=== PATIENT | male | born 1990 | race Caucasian/White ===

== ENCOUNTER 2017-02-20 09:19 | Inpatient (IN) | payer BC, OTHER ==
[2017-02-20 15:08] VITALS: BMI 26.4
--- NOTE | 2017-02-20 17:16 | HP ---
COWS - Scale Resting Pulse: 2= [place] 101-120 Sweatin= Chills/Flushing Restless Observation: 1= Difficult to Sit Still Pupil Size: 1= Pupils >than Normal Bone or Joint Aches: 1= Mild Discomfort Runny Nose/ Eye Tearin= Nasal Congestion GI Upset > 30mins: 1= Stomach Cramp Tremor Observation: 1= Tremor [place], Not Seen Yawning Observation: 0= None Anxiety or Irritability: 1=Feels Anxious/Irritable Goose Flesh Skin: 0=Smooth Skin COWS Score: 10 CIWA Score - CIWA Score Nausea/Vomitin Muscle Tremors: 2 Anxiety: 3 Agitation: 2 Paroxysmal Sweats: 3 Orientation: 0-Oriented Tacttile Disturbances: 1-Very Mild Itch/Numbness Auditory Disturbances: 0-None Visual Disturbances: 0-None Headache: 0-None Present CIWA-Ar Total Score: 13 Admission ROS BHS - HPI Chief Complaint: I need help to detox from drugs Allergies/Adverse Reactions: Allergies Allergy/AdvReac Type Severity Reaction Status Date / Time No Known Allergies Allergy Verified 02/20/17 15:15 History of Present Illness: 26 y/o m pt with a h/o polysubstance dependency seeking detox. Exam Limitations: No Limitations - Ebola screening Have you traveled outside of the country in the last 21 days: No Have you had contact with anyone from an Ebola affected area: No Have you been sick,other than usual withdrawal symptoms: No Do you have a fever: No - Review of Systems Constitutional: Loss of Appetite, Malaise, Night Sweats, Changes in sleep EENT: reports: Nose Congestion, Other (congestion left ear) Respiratory: reports: No Symptoms reported Cardiac: reports: No Symptoms Reported GI: reports: No Symptoms Reported : reports: Other (hesitancy) Musculoskeletal: reports: Back Pain, Muscle Pain (legs) Integumentary: reports: No Symptoms Reported Neuro: reports: Seizure Endocrine: reports: No Symptoms Reported Hematology: reports: No Symptoms Reported Psychiatric: reports: Depressed Other Systems: Reviewed and Negative Patient History - Patient Medical History Hx Anemia: No Hx Asthma: Yes (childhood ) Hx Chronic Obstructive Pulmonary Disease (COPD): No Hx Cancer: No Hx Cardiac Disorders: No Hx Congestive Heart Failure: No Hx Hypertension: No Hx Hypercholesterolemia: No Hx Pacemaker: No HX Cerebrovascular Accident: No Hx Seizures: Yes (2016- drug /alcohol related ) Hx Dementia: No Hx Diabetes: No Hx Gastrointestinal Disorders: No Hx Liver Disease: No Hx Genitourinary Disorders: No Hx Sexually Transmitted Disorders: No Hx Renal Disease (ESRD): No Hx Thyroid Disease: No Hx Human Immunodeficiency Virus (HIV): No Hx Hepatitis C: No Hx Depression: Yes Hx Suicide Attempt: No Hx Schizophrenia: No - Patient Surgical History Past Surgical History: Yes Hx Appendectomy: Yes - PPD History Previous Implant?: Yes Documented Results: Negative w/o proof Implanted On Prior [facility] Admission?: No PPD to be Administered?: Yes - Reproductive History Patient is a Female of Child Bearing Age (11 -55 yrs old): No - Smoking Cessation Smoking history: Current every day smoker Have you smoked in the past 12 months: Yes Aproximately how many cigarettes per day: 19 Cigars Per Day: 0 Hx Chewing Tobacco Use: No Initiated information on smoking cessation: Yes 'Breaking Loose' booklet given: 02/20/17 - Substance & Tx. History Hx Alcohol Use: Yes Hx Substance Use: Yes Substance Use Type: Alcohol, Heroin, Opiates, Tranquilizers Hx Substance Use Treatment: No - Substances Abused Alprazolam (Xanax) Route: Oral Frequency: Daily Amount used: 10MG Age of first use: 18 Date of Last Use: 02/20/17 Alcohol Route: Oral Frequency: Daily Amount used: BEER-6-12 bottles-12 OZ Age of first use: 13 Date of Last Use: 02/20/17 Marijuana/Hashish Route: Smoking Frequency: Daily Amount used: 3 1/2 GRAMS Age of first use: 13 Date of Last Use: 02/20/17 Heroin Route: Inhalation Frequency: Daily Amount used: 10-20 BAGS Age of first use: 26 Date of Last Use: 02/20/17 OXYCODONE Route: Inhalation Frequency: Daily Amount used: 300MG Age of first use: 21 Date of Last Use: 02/15/17 Family Disease History - Family Disease History Family Disease History: Respiratory: Mother (asthma ) Admission Physical Exam BHS - Vital Signs Vital Signs: Vital Signs - 24 hr 02/20/17 15:04 Temperature 97.0 F L Pulse Rate 113 H Respiratory 20 Rate Blood Pressure 131/73 26 y/o m pt slight drowsy but ox3 , cooperative with exam - Physical General Appearance: Yes: Appropriately Dressed, Intoxicated, Irritable, Sweating , Anxious HEENTM: Yes: EOMI, Hearing grossly Normal, Normal ENT Inspection, ELIAN, Nasal Congestion Respiratory: Yes: Chest Non-Tender, Lungs Clear, Normal Breath Sounds, No Respiratory Distress Neck: Yes: Supple, Trachea in good position Breast: Yes: Within Normal Limits Cardiology: Yes: Regular Rhythm, Tachycardia Abdominal: Yes: Non Tender, Flat, Soft, Increased Bowel Sounds Genitourinary: Yes: Hesitency, Dribblimg Back: Yes: Decreased Range of Motion Musculoskeletal: Yes: Muscle Pain (legs) Extremities: Yes: Within Normal Limits Neurological: Yes: 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 bought therefore will hold methadone detox till am. (2) Nicotine dependence Current Visit: Yes Status: Chronic Qualifiers: Nicotine product type: cigarettes Substance use status: uncomplicated Qualified Code(s): F17.210 - Nicotine dependence, cigarettes, uncomplicated (3) Xanax use disorder, moderate Current Visit: Yes Status: Chronic (4) Chronic alcoholism Current Visit: Yes Status: Chronic Cleared for Admission [facility] - Detox or Rehab [facility] Level of Care: Medically Managed Detox Regimen/Protocol: Methadone/Valium S Breath Alcohol Content Breath Alcohol Content: 0 Urine Drug Screen - Results Drug Screen Negative: No Urine Drug Screen Results: THC-Marijuana, OPI-Opiates, BZO-Benzodiazepines
[2017-02-20] MEDS ORDERED: MAGNESIUM HYDROX 2400MG/30ML ORAL SUSPENSION 30 ML CUP PO PRN (17:41)
[2017-02-20] MEDS ORDERED: diazePAM 5 MG TABLET PO PRN (17:41)
[2017-02-20] MEDS ORDERED: LOPERAMIDE HCL 2 MG CAPSULE PO PRN (17:41)
[2017-02-20] MEDS ORDERED: MAGNESIUM CITRATE 300 ML BOTTLE PO PRN (17:41)
[2017-02-20] MEDS ORDERED: MAG HYDROX/AL HYDROX/SIMETH 30 ML UNIT-DOSE CUP PO PRN (17:41)
[2017-02-20] MEDS ORDERED: IBUPROFEN 400 MG TABLET (FP) PO PRN (17:41)
[2017-02-20] MEDS ORDERED: guaiFENesin/D-METHORPHAN HB 10 ML UNIT-DOSE CUPS PO PRN (17:41)
[2017-02-20] MEDS ORDERED: MENTHOL/PHENOL 1 EACH UD MM PRN (17:41)
[2017-02-20] MEDS ORDERED: ACETAMINOPHEN 325 MG TABLET (FP) PO PRN (17:41)
[2017-02-20] MEDS ORDERED: P-EPHED 60MG/TRIPROLIDI 2.5MG TABLET PO PRN (17:41)
[2017-02-20] MEDS ORDERED: diazePAM 5 MG TABLET PO ONE (18:15)
[2017-02-20] MEDS: NICOTINE POLACRILEX 4 MG GUM BC PRN (20:10)
[2017-02-20] MEDS: THIAMINE HCL 100 MG TABLET (FP) PO SCH (22:27)
[2017-02-20] MEDS: diazePAM 5 MG TABLET PO SCH (22:27)
[2017-02-20] MEDS: diphenhydrAMINE HCL 50 MG CAPSULE PO PRN (22:27)
[2017-02-21] MEDS: diazePAM 5 MG TABLET PO SCH ×3 (05:43→22:33)
--- NOTE | 2017-02-21 08:57 | CONSULT ---
[facility] Psychiatric Consult - Data Date of interview: 02/21/17 Admission source: [facility] Identifying data: This is 26 years old male with no psychiatric hospitalization history intoxicated with: Alcohol, Opioids, Cannabis, Xanax and Nicotine Substance Abuse History: - Smoking Cessation. Smoking history: Current every day smoker. Have you smoked in the past 12 months: Yes. Aproximately how many cigarettes per day: 19. Cigars Per Day: 0. Hx Chewing Tobacco Use: No. Initiated information on smoking cessation: Yes. 'Breaking Loose' booklet given : 02/20/17. - Substance & Tx. History. Hx Alcohol Use: Yes. Hx Substance Use : Yes. Substance Use Type: Alcohol, Heroin, Opiates, Tranquilizers. Hx Substance Use Treatment: No. - Substances Abused. Alprazolam (Xanax). Route: Oral. Frequency: Daily. Amount used: 10MG. Age of first use: 18. Date of Last Use: 02/20/17. Alcohol. Route: Oral. Frequency: Daily. Amount used: BEER-6-12 bottles-12 OZ. Age of first use: 13. Date of Last Use: 02/20/17. Marijuana/Hashish. Route: Smoking. Frequency: Daily. Amount used: 3 1/2 GRAMS. Age of first use: 13. Date of Last Use: 02/20/17. Heroin. Route: Inhalation. Frequency: Daily. Amount used: 10-20 BAGS. Age of first use: 26. Date of Last Use: 02/20/17. OXYCODONE. Route: Inhalation. Frequency: Daily. Amount used: 300MG. Age of first use: 21. Date of Last Use: Medical History: Denies significanyt medical issues Psychiatric History: Denies poast psychiatric history, reports no medications taking prior to admission Physical/Sexual Abuse/Trauma History: Denies Additional Comment: Observation. Detox Unit Care Protocol Mental Status Exam - Mental Status Exam Alert and Oriented to: Person Cognitive Function: Fair Patient Appearance: Unkempt Mood: Sad Affect: Flat Patient Behavior: Sedated Speech Pattern: Delayed Voice Loudness: Mildly Soft/Quiet Thought Process: Circumstantial Thought Disorder: Being Controlled Hallucinations: Denies Suicidal Ideation: Denies Homicidal Ideation: Denies Insight/Judgement: Fair Sleep: Difficulty falling asleep Appetite: Weight loss Muscle strength/Tone: Mild Hypotonicity Gait/Station: Shuffling Additional Comments: Observation. Detox Unit Care Protocol Psychiatric Findings - Problem List ([place] 1, 2,3) (1) Chronic alcoholism Current Visit: Yes Status: Chronic (2) Nicotine dependence Current Visit: Yes Status: Chronic Qualifiers: Nicotine product type: cigarettes Substance use status: uncomplicated Qualified Code(s): F17.210 - Nicotine dependence, cigarettes, uncomplicated (3) Opioid dependence Current Visit: Yes Status: Chronic Qualifiers: Substance use status: uncomplicated Qualified Code(s): F11.20 - Opioid dependence, uncomplicated Comment: pt took suboxone 8mg on 02/19/17, -st. bought therefore will hold methadone detox till am. (4) Xanax use disorder, moderate Current Visit: Yes Status: Chronic (5) Alcohol use with intoxication Current Visit: No Status: Acute (6) Drug-induced mood disorder Current Visit: Yes Status: Acute - Initial Treatment Plan Initial Treatment Plan: Observation. Detox Unit Care Protocol
[2017-02-21 09:58] LABS: MCHC 33.8 g/dl (32.0-35.9); MEAN CELL VOLUME 91.8 fl (80-96); MEAN PLT VOLUME 8.5 fl (7.5-11.1); PLATELET COUNT 208 K/MM3 (134-434); WHITE BLOOD COUNT 4.5 K/mm3 (4.0-10.0)
[2017-02-21] MEDS ORDERED: METHADONE HCL 10 MG TABLET (FOR DETOX USE ONLY) PO ONE (10:00)
[2017-02-21] MEDS: NICOTINE 21 MG/24 HOURS TOPICAL PATCH TD SCH (10:25)
[2017-02-21] MEDS: PRENATAL VITAMINS W/ FOLIC ACID TABLET (FP) PO SCH (10:25)
[2017-02-21] MEDS: diazePAM 5 MG TABLET PO PRN ×2 (10:28→18:05)
[2017-02-21 10:30] LABS: ALBUMIN 3.5 g/dl (3.4-5.0); ALK PHOS 51 U/L (45-117); ANION GAP 6 (8-16); BILIRUBIN,TOTAL 0.2 mg/dL (0.2-1.0); CALCIUM 8.7 mg/dL (8.5-10.1); CO2 29 mmol/L (21-32); CREATININE 0.8 mg/dL (0.7-1.3); GLUCOSE,RANDOM 117 mg/dL (74-106); SGOT/AST 16 U/L (15-37); SGPT/ALT 18 U/L (12-78); TOT PROT 5.8 g/dl (6.4-8.2)
[2017-02-21 10:39] LABS: HIV 1 & 2 AB NEGATIVE; HIV 1 AGp24 NEGATIVE
--- NOTE | 2017-02-21 11:14 | PN ---
[facility] CIWA - CIWA Score Nausea/Vomitin-No Nausea/No Vomiting Muscle Tremors: 4-Moderate,w/Arms Extend Anxiety: 4-Mod. Anxious/Guarded Agitation: 4-Moderately Restless Paroxysmal Sweats: 1-Minimal Palms Moist Orientation: 0-Oriented Tacttile Disturbances: 0-None Auditory Disturbances: 0-None Visual Disturbances: 0-None Headache: 0-None Present CIWA-Ar Total Score: 13 BHS COWS - Scale Resting Pulse: 0= [place] 80 or Below Sweatin= Chills/Flushing Restless Observation: 3= Extraneous Movement Pupil Size: 2= Moderately Dilated Bone or Joint Aches: 4=Acute Joint/Muscle Pain Runny Nose/ Eye Tearin= Nasal Congestion GI Upset > 30mins: 1= Stomach Cramp Tremor Observation of Outstretched Hands: 2= Slight Tremor Visible Yawning Observation: 2= >3x During Session Anxiety or Irritability: 2=Irritable/Anxious Goose Flesh Skin: 0=Smooth Skin COWS Score: 18 S Progress Note (SOAP) Subjective: ANXIETY,SWEATS,IRRITABILITY,RESTLESSNESS,INTERMITTENT SLEEP, FATIGUE.REQUESTING SLEEPING AID. Objective: 02/21/17 11:13 Vital Signs Temperature 96.9 F L 02/21/17 09:55 Pulse Rate 70 02/21/17 09:55 Respiratory Rate 18 02/21/17 09:55 Blood Pressure 105/69 02/21/17 09:55 O2 Sat by Pulse Oximetry (%) Laboratory Last Values WBC 4.5 K/mm3 (4.0-10.0) D 02/21/17 06:30 RBC 4.28 M/mm3 (4.00-5.60) 02/21/17 06:30 Hgb 13.3 GM/dL (11.7-16.9) 02/21/17 06:30 Hct 39.3 % (35.4-49) 02/21/17 06:30 MCV 91.8 fl (80-96) 02/21/17 06:30 MCH 31.0 pg (25.7-33.7) 02/21/17 06:30 MCHC 33.8 g/dl (32.0-35.9) 02/21/17 06:30 RDW 13.0 % (11.9-15.9) 02/21/17 06:30 Plt Count 208 K/MM3 (134-434) 02/21/17 06:30 MPV 8.5 fl (7.5-11.1) 02/21/17 06:30 Sodium 140 mmol/L (136-145) 02/21/17 06:30 Potassium 4.1 mmol/L (3.5-5.1) 02/21/17 06:30 Chloride 105 mmol/L (98-107) 02/21/17 06:30 Carbon Dioxide 29 mmol/L (21-32) 02/21/17 06:30 Anion Gap 6 (8-16) L 02/21/17 06:30 BUN 13 mg/dL (7-18) D 02/21/17 06:30 Creatinine 0.8 mg/dL (0.7-1.3) 02/21/17 06:30 Creat Clearance w eGFR > 60 (>60) 02/21/17 06:30 Random Glucose 117 mg/dL (74-106) H D 02/21/17 06:30 Calcium 8.7 mg/dL (8.5-10.1) 02/21/17 06:30 Total Bilirubin 0.2 mg/dL (0.2-1.0) 02/21/17 06:30 AST 16 U/L (15-37) 02/21/17 06:30 ALT 18 U/L (12-78) D 02/21/17 06:30 Alkaline Phosphatase 51 U/L (45-117) D 02/21/17 06:30 Total Protein 5.8 g/dl (6.4-8.2) L 02/21/17 06:30 Albumin 3.5 g/dl (3.4-5.0) 02/21/17 06:30 RPR Titer Nonreactive (NONREACTIVE) 02/21/17 06:30 HIV 1&2 Antibody Screen Negative 02/21/17 06:30 HIV P24 Antigen Negative 02/21/17 06:30 Assessment: 02/21/17 11:14 WITHDRAWAL SX Plan: CONTINUE DETOX
[2017-02-21 14:19] LABS: URINE APPEARANCE CLEAR; URINE BILIRUBIN NEGATIVE (NEGATIVE); URINE BLOOD NEGATIVE (NEGATIVE); URINE COLOR LTYELLOW; URINE GLUCOSE (UA) NEGATIVE (NEGATIVE); URINE KETONE NEGATIVE (NEGATIVE); URINE LEUK ESTERASE NEGATIVE (NEGATIVE); URINE NITRITE NEGATIVE (NEGATIVE); URINE PROTEIN NEGATIVE (NEGATIVE); URINE UROBILINOGEN NEGATIVE mg/dL (0.2-1.0)
--- NOTE | 2017-02-21 16:37 | EKG ---
Test Reason : Blood Pressure : / mmHG Vent. Rate : 083 BPM Atrial Rate : 083 BPM P-R Int : 164 ms QRS Dur : 094 ms QT Int : 358 ms P-R-T Axes : 056 060 037 degrees QTc Int : 420 ms NORMAL SINUS RHYTHM NORMAL ECG NO PREVIOUS ECGS AVAILABLE Confirmed by ESTELA GONCALVES MD ([id number]) on 02/21/2017 4:36:53 PM Referred By: Confirmed By:ESTELA GONCALVES MD
[2017-02-21] MEDS ORDERED: cloNIDine HCL 0.1 MG TABLET PO PRN (16:49)
[2017-02-21] MEDS: NICOTINE POLACRILEX 4 MG GUM BC PRN (20:10)
[2017-02-21] MEDS: THIAMINE HCL 100 MG TABLET (FP) PO SCH (22:32)
[2017-02-21] MEDS: CYCLOBENZAPRINE HCL 10 MG TABLET (FP) PO SCH (22:32)
[2017-02-21] MEDS: hydrOXYzine PAMOATE 25 MG CAPSULE (FP) PO PRN (22:36)
[2017-02-22] MEDS: CYCLOBENZAPRINE HCL 10 MG TABLET (FP) PO SCH ×3 (06:18→22:34)
[2017-02-22] MEDS ORDERED: METHADONE HCL 5 MG TABLET (FOR DETOX USE ONLY) PO ONE (10:00)
--- NOTE | 2017-02-22 10:33 | PN ---
[facility] Progress Note Note: Psychiatry Attending's note : Complaint :insomnia. Patient is requesting ambien. Made aware of risk of parasomnias. Ambien 10 mg po hs.Ordered.
[2017-02-22] MEDS: PRENATAL VITAMINS W/ FOLIC ACID TABLET (FP) PO SCH (10:47)
[2017-02-22] MEDS: diazePAM 5 MG TABLET PO SCH ×2 (10:47→22:34)
[2017-02-22] MEDS: NICOTINE 21 MG/24 HOURS TOPICAL PATCH TD SCH (10:48)
--- NOTE | 2017-02-22 12:15 | PN ---
S CIWA - CIWA Score Nausea/Vomitin-No Nausea/No Vomiting Muscle Tremors: 4-Moderate,w/Arms Extend Anxiety: 4-Mod. Anxious/Guarded Agitation: 4-Moderately Restless Paroxysmal Sweats: 1-Minimal Palms Moist Orientation: 0-Oriented Tacttile Disturbances: 3-Moderate Itch/Numb/Burn Auditory Disturbances: 0-None Visual Disturbances: 0-None Headache: 0-None Present CIWA-Ar Total Score: 16 S COWS - Scale Resting Pulse: 0= [place] 80 or Below Sweatin= Chills/Flushing Restless Observation: 3= Extraneous Movement Pupil Size: 2= Moderately Dilated Bone or Joint Aches: 4=Acute Joint/Muscle Pain Runny Nose/ Eye Tearin= None GI Upset > 30mins: 1= Stomach Cramp Tremor Observation of Outstretched Hands: 2= Slight Tremor Visible Yawning Observation: 2= >3x During Session Anxiety or Irritability: 2=Irritable/Anxious Goose Flesh Skin: 0=Smooth Skin COWS Score: 17 [facility] Progress Note (SOAP) Subjective: ANXIETY,IRRITABILITY,SWEATS,INTERMITTENT SLEEP. Objective: 02/22/17 12:14 Vital Signs Temperature 96.8 F L 02/22/17 09:21 Pulse Rate 78 02/22/17 09:21 Respiratory Rate 18 02/22/17 09:21 Blood Pressure 114/71 02/22/17 09:21 O2 Sat by Pulse Oximetry (%) Laboratory Last Values WBC 4.5 K/mm3 (4.0-10.0) D 02/21/17 06:30 RBC 4.28 M/mm3 (4.00-5.60) 02/21/17 06:30 Hgb 13.3 GM/dL (11.7-16.9) 02/21/17 06:30 Hct 39.3 % (35.4-49) 02/21/17 06:30 MCV 91.8 fl (80-96) 02/21/17 06:30 MCH 31.0 pg (25.7-33.7) 02/21/17 06:30 MCHC 33.8 g/dl (32.0-35.9) 02/21/17 06:30 RDW 13.0 % (11.9-15.9) 02/21/17 06:30 Plt Count 208 K/MM3 (134-434) 02/21/17 06:30 MPV 8.5 fl (7.5-11.1) 02/21/17 06:30 Sodium 140 mmol/L (136-145) 02/21/17 06:30 Potassium 4.1 mmol/L (3.5-5.1) 02/21/17 06:30 Chloride 105 mmol/L (98-107) 02/21/17 06:30 Carbon Dioxide 29 mmol/L (21-32) 02/21/17 06:30 Anion Gap 6 (8-16) L 02/21/17 06:30 BUN 13 mg/dL (7-18) D 02/21/17 06:30 Creatinine 0.8 mg/dL (0.7-1.3) 02/21/17 06:30 Creat Clearance w eGFR > 60 (>60) 02/21/17 06:30 Random Glucose 117 mg/dL (74-106) H D 02/21/17 06:30 Calcium 8.7 mg/dL (8.5-10.1) 02/21/17 06:30 Total Bilirubin 0.2 mg/dL (0.2-1.0) 02/21/17 06:30 AST 16 U/L (15-37) 02/21/17 06:30 ALT 18 U/L (12-78) D 02/21/17 06:30 Alkaline Phosphatase 51 U/L (45-117) D 02/21/17 06:30 Total Protein 5.8 g/dl (6.4-8.2) L 02/21/17 06:30 Albumin 3.5 g/dl (3.4-5.0) 02/21/17 06:30 Urine Color Ltyellow 02/21/17 12:30 Urine Appearance Clear 02/21/17 12:30 Urine pH 6.0 (5.0-8.0) 02/21/17 12:30 Ur Specific [place] 1.015 (1.005-1.025) 02/21/17 12:30 Urine Protein Negative (NEGATIVE) 02/21/17 12:30 Urine Glucose (UA) Negative (NEGATIVE) 02/21/17 12:30 Urine Ketones Negative (NEGATIVE) 02/21/17 12:30 Urine Blood Negative (NEGATIVE) 02/21/17 12:30 Urine Nitrite Negative (NEGATIVE) 02/21/17 12:30 Urine Bilirubin Negative (NEGATIVE) 02/21/17 12:30 Urine Urobilinogen Negative mg/dL (0.2-1.0) 02/21/17 12:30 Ur Leukocyte Esterase Negative (NEGATIVE) 02/21/17 12:30 RPR Titer Nonreactive (NONREACTIVE) 02/21/17 06:30 HIV 1&2 Antibody Screen Negative 02/21/17 06:30 HIV P24 Antigen Negative 02/21/17 06:30 Assessment: 02/22/17 12:14 WITHDRAWAL SX Plan: CONTINUE DETOX PSYCH RE:EVALUATION TODAY FOR INSOMNIA
[2017-02-22] MEDS: NICOTINE POLACRILEX 4 MG GUM BC PRN ×2 (13:15→15:32)
[2017-02-22] MEDS: diazePAM 5 MG TABLET PO PRN ×2 (13:16→19:02)
[2017-02-22] MEDS: hydrOXYzine PAMOATE 25 MG CAPSULE (FP) PO PRN (15:32)
[2017-02-22] MEDS: ZOLPIDEM TARTRATE 10 MG TABLET (PARK CARE ONLY) PO PRN (22:34)
[2017-02-22] MEDS: THIAMINE HCL 100 MG TABLET (FP) PO SCH (22:34)
[2017-02-23] MEDS: diazePAM 5 MG TABLET PO PRN ×2 (05:38→12:56)
[2017-02-23] MEDS: CYCLOBENZAPRINE HCL 10 MG TABLET (FP) PO SCH ×3 (05:38→22:53)
[2017-02-23] MEDS ORDERED: METHADONE HCL 5 MG TABLET (FOR DETOX USE ONLY) PO ONE (10:00)
[2017-02-23] MEDS: NICOTINE 21 MG/24 HOURS TOPICAL PATCH TD SCH (10:23)
[2017-02-23] MEDS: PRENATAL VITAMINS W/ FOLIC ACID TABLET (FP) PO SCH (10:23)
[2017-02-23] MEDS: diazePAM 5 MG TABLET PO SCH ×2 (10:23→22:53)
[2017-02-23] MEDS: hydrOXYzine PAMOATE 25 MG CAPSULE (FP) PO PRN (18:08)
--- NOTE | 2017-02-23 20:29 | PN ---
[facility] Progress Note (SOAP) Subjective: Stomach Cramping, Sweating, Constipation, Interrupted sleep, Tremors. Objective: PT. A & O X 3, OBSERVED AMBULATING ON UNIT. NO ACUTE DISTRESS. 02/23/17 20:28 Vital Signs Temperature 97.7 F 02/23/17 18:35 Pulse Rate 80 02/23/17 18:35 Respiratory Rate 18 02/23/17 18:35 Blood Pressure 108/63 02/23/17 18:35 O2 Sat by Pulse Oximetry (%) Laboratory Tests 02/21/17 02/21/17 02/21/17 06:30 06:30 06:30 WBC 4.5 D RBC 4.28 Hgb 13.3 Hct 39.3 MCV 91.8 MCH 31.0 MCHC 33.8 RDW 13.0 Plt Count 208 MPV 8.5 Sodium 140 Potassium 4.1 Chloride 105 Carbon Dioxide 29 Anion Gap 6 L BUN 13 D Creatinine 0.8 Creat Clearance w eGFR > 60 Random Glucose 117 H D Calcium 8.7 Total Bilirubin 0.2 AST 16 ALT 18 D Alkaline Phosphatase 51 D Total Protein 5.8 L Albumin 3.5 Urine Color Urine Appearance Urine pH Ur Specific [place] Urine Protein Urine Glucose (UA) Urine Ketones Urine Blood Urine Nitrite Urine Bilirubin Urine Urobilinogen Ur Leukocyte Esterase RPR Titer HIV 1&2 Antibody Screen Negative HIV P24 Antigen Negative 02/21/17 02/21/17 06:30 12:30 WBC RBC Hgb Hct MCV MCH MCHC RDW Plt Count MPV Sodium Potassium Chloride Carbon Dioxide Anion Gap BUN Creatinine Creat Clearance w eGFR Random Glucose Calcium Total Bilirubin AST ALT Alkaline Phosphatase Total Protein Albumin Urine Color Ltyellow Urine Appearance Clear Urine pH 6.0 Ur Specific [place] 1.015 Urine Protein Negative Urine Glucose (UA) Negative Urine Ketones Negative Urine Blood Negative Urine Nitrite Negative Urine Bilirubin Negative Urine Urobilinogen Negative Ur Leukocyte Esterase Negative RPR Titer Nonreactive HIV 1&2 Antibody Screen HIV P24 Antigen LABS NOTED. Assessment: 02/23/17 20:28 WITHDRAWAL SYMPTOMS. Plan: CONTINUE DETOX.
[2017-02-23] MEDS: ZOLPIDEM TARTRATE 10 MG TABLET (PARK CARE ONLY) PO PRN (22:53)
[2017-02-23] MEDS: THIAMINE HCL 100 MG TABLET (FP) PO SCH (22:54)
[2017-02-24] MEDS: CYCLOBENZAPRINE HCL 10 MG TABLET (FP) PO SCH ×3 (05:10→22:27)
[2017-02-24] MEDS: hydrOXYzine PAMOATE 25 MG CAPSULE (FP) PO PRN ×3 (05:10→17:20)
[2017-02-24] MEDS ORDERED: METHADONE HCL 10 MG TABLET (FOR DETOX USE ONLY) PO ONE (10:00)
[2017-02-24] MEDS ORDERED: diazePAM 5 MG TABLET PO SCH (10:00)
[2017-02-24] MEDS: NICOTINE 21 MG/24 HOURS TOPICAL PATCH TD SCH (10:32)
[2017-02-24] MEDS: PRENATAL VITAMINS W/ FOLIC ACID TABLET (FP) PO SCH (10:32)
--- NOTE | 2017-02-24 16:31 | PN ---
[facility] Progress Note (SOAP) Subjective: Sweating, anxious, restless, interrupted sleep Objective: 02/24/17 16:29 Last Vital Signs Temp Pulse Resp BP Pulse Ox 96.7 F L 93 H 20 114/70 02/24/17 14:40 02/24/17 14:40 02/24/17 14:40 02/24/17 14:40 Laboratory Tests 02/21/17 02/21/17 02/21/17 06:30 06:30 06:30 WBC 4.5 D RBC 4.28 Hgb 13.3 Hct 39.3 MCV 91.8 MCH 31.0 MCHC 33.8 RDW 13.0 Plt Count 208 MPV 8.5 Sodium 140 Potassium 4.1 Chloride 105 Carbon Dioxide 29 Anion Gap 6 L BUN 13 D Creatinine 0.8 Creat Clearance w eGFR > 60 Random Glucose 117 H D Calcium 8.7 Total Bilirubin 0.2 AST 16 ALT 18 D Alkaline Phosphatase 51 D Total Protein 5.8 L Albumin 3.5 Urine Color Urine Appearance Urine pH Ur Specific [place] Urine Protein Urine Glucose (UA) Urine Ketones Urine Blood Urine Nitrite Urine Bilirubin Urine Urobilinogen Ur Leukocyte Esterase RPR Titer HIV 1&2 Antibody Screen Negative HIV P24 Antigen Negative 02/21/17 02/21/17 06:30 12:30 WBC RBC Hgb Hct MCV MCH MCHC RDW Plt Count MPV Sodium Potassium Chloride Carbon Dioxide Anion Gap BUN Creatinine Creat Clearance w eGFR Random Glucose Calcium Total Bilirubin AST ALT Alkaline Phosphatase Total Protein Albumin Urine Color Ltyellow Urine Appearance Clear Urine pH 6.0 Ur Specific [place] 1.015 Urine Protein Negative Urine Glucose (UA) Negative Urine Ketones Negative Urine Blood Negative Urine Nitrite Negative Urine Bilirubin Negative Urine Urobilinogen Negative Ur Leukocyte Esterase Negative RPR Titer Nonreactive HIV 1&2 Antibody Screen HIV P24 Antigen Labs noted Assessment: 02/24/17 16:30 Withdrawal symptoms Plan: Continue detox Encouraged to drink lots of water for hydration
[2017-02-24] MEDS: THIAMINE HCL 100 MG TABLET (FP) PO SCH (22:27)
[2017-02-24] MEDS: ZOLPIDEM TARTRATE 10 MG TABLET (PARK CARE ONLY) PO PRN (22:28)
[2017-02-24] MEDS: diphenhydrAMINE HCL 50 MG CAPSULE PO PRN (23:35)
[2017-02-25] MEDS: CYCLOBENZAPRINE HCL 10 MG TABLET (FP) PO SCH (05:24)
[2017-02-25] MEDS ORDERED: METHADONE HCL 5 MG TABLET (FOR DETOX USE ONLY) PO ONE (06:00)
[2017-02-25 07:00] VITALS: BP 104/62; PULSE 96; TEMP 96.1
--- NOTE | 2017-02-25 13:02 | DS ---
[facility] Detox Discharge Summary Admission Date: 02/20/17 Discharge Date: 02/25/17 - History Present History: Alcohol Dependence, Opioid Dependence, Sedative Dependence Pertinent Past History: HSV - Physical Exam Results Vital Signs: Vital Signs Temperature 96.1 F L 02/25/17 06:59 Pulse Rate 96 H 02/25/17 06:59 Respiratory Rate 16 02/25/17 06:59 Blood Pressure 104/62 02/25/17 06:59 O2 Sat by Pulse Oximetry (%) Pertinent Admission Physical Exam Findings: Withdrawal sx. Laboratory Last Values WBC 4.5 K/mm3 (4.0-10.0) D 02/21/17 06:30 RBC 4.28 M/mm3 (4.00-5.60) 02/21/17 06:30 Hgb 13.3 GM/dL (11.7-16.9) 02/21/17 06:30 Hct 39.3 % (35.4-49) 02/21/17 06:30 MCV 91.8 fl (80-96) 02/21/17 06:30 MCH 31.0 pg (25.7-33.7) 02/21/17 06:30 MCHC 33.8 g/dl (32.0-35.9) 02/21/17 06:30 RDW 13.0 % (11.9-15.9) 02/21/17 06:30 Plt Count 208 K/MM3 (134-434) 02/21/17 06:30 MPV 8.5 fl (7.5-11.1) 02/21/17 06:30 Sodium 140 mmol/L (136-145) 02/21/17 06:30 Potassium 4.1 mmol/L (3.5-5.1) 02/21/17 06:30 Chloride 105 mmol/L (98-107) 02/21/17 06:30 Carbon Dioxide 29 mmol/L (21-32) 02/21/17 06:30 Anion Gap 6 (8-16) L 02/21/17 06:30 BUN 13 mg/dL (7-18) D 02/21/17 06:30 Creatinine 0.8 mg/dL (0.7-1.3) 02/21/17 06:30 Creat Clearance w eGFR > 60 (>60) 02/21/17 06:30 Random Glucose 117 mg/dL (74-106) H D 02/21/17 06:30 Calcium 8.7 mg/dL (8.5-10.1) 02/21/17 06:30 Total Bilirubin 0.2 mg/dL (0.2-1.0) 02/21/17 06:30 AST 16 U/L (15-37) 02/21/17 06:30 ALT 18 U/L (12-78) D 02/21/17 06:30 Alkaline Phosphatase 51 U/L (45-117) D 02/21/17 06:30 Total Protein 5.8 g/dl (6.4-8.2) L 02/21/17 06:30 Albumin 3.5 g/dl (3.4-5.0) 02/21/17 06:30 Urine Color Ltyellow 02/21/17 12:30 Urine Appearance Clear 02/21/17 12:30 Urine pH 6.0 (5.0-8.0) 02/21/17 12:30 Ur Specific [place] 1.015 (1.005-1.025) 02/21/17 12:30 Urine Protein Negative (NEGATIVE) 02/21/17 12:30 Urine Glucose (UA) Negative (NEGATIVE) 02/21/17 12:30 Urine Ketones Negative (NEGATIVE) 02/21/17 12:30 Urine Blood Negative (NEGATIVE) 02/21/17 12:30 Urine Nitrite Negative (NEGATIVE) 02/21/17 12:30 Urine Bilirubin Negative (NEGATIVE) 02/21/17 12:30 Urine Urobilinogen Negative mg/dL (0.2-1.0) 02/21/17 12:30 Ur Leukocyte Esterase Negative (NEGATIVE) 02/21/17 12:30 RPR Titer Nonreactive (NONREACTIVE) 02/21/17 06:30 HIV 1&2 Antibody Screen Negative 02/21/17 06:30 HIV P24 Antigen Negative 02/21/17 06:30 labs noted - Treatment Hospital Course: Detox Protocol Followed, Detoxed Safely, Responded well, Discharged Condition Good, Rehab Referral Accepted Patient has Accepted a Rehab Referral to: Pt. was approved for Bx. ATC but refused, He will arrange an alternative Tx - Medication Discharge Medications: Ambulatory Orders Alprazolam [Xanax -] 2 mg PO BID 12/15/14 Fluconazole 200 mg PO DAILY PRN 02/20/17 Valacyclovir HCl [Valtrex -] 2,000 mg PO BID PRN 02/20/17 - Diagnosis (1) Drug-induced mood disorder Status: Acute (2) Nicotine dependence Status: Chronic Qualifiers: Nicotine product type: cigarettes Substance use status: uncomplicated Qualified Code(s): F17.210 - Nicotine dependence, cigarettes, uncomplicated (3) Alcohol dependence with uncomplicated withdrawal Status: Acute (4) Opioid dependence with withdrawal Status: Acute (5) Sedative, hypnotic or anxiolytic dependence with withdrawal, uncomplicated Status: Acute - AMA Did Patient Leave Against Medical Advice: No
== END 2017-02-25 08:58 | disposition home or self-care (01) | DRG 897 ==
LOC: YASAS 09:19 → Y3N 16:53
PROVIDERS: ADMIT Internal Medicine Addiction Medicine; ATTEND Internal Medicine Addiction Medicine
PROC: HZ2ZZZZ Detoxification Services for Substance Abuse Treatment (ICD-10-PCS; principal; 2017-02-20)
DX: F11.23 Opioid dependence with withdrawal (principal); F10.230 Alcohol dependence with withdrawal, uncomplicated; F13.230 Sedative, hypnotic or anxiolytic dependence with withdrawal, uncomplicated; F12.20 Cannabis dependence, uncomplicated; F17.210 Nicotine dependence, cigarettes, uncomplicated; F19.24 Other psychoactive substance dependence with psychoactive substance-induced mood disorder; R00.0 Tachycardia, unspecified; Z87.09 Personal history of other diseases of the respiratory system; Z86.69 Personal history of other diseases of the nervous system and sense organs
CPT/HCPCS: 36415; 80053; 81003; 85027; 86593; 87389; 93005; 93010

== ENCOUNTER 2017-11-01 10:42 | Inpatient (IN) | payer OTHER ==
[2017-11-01 11:01] VITALS: BMI 25.8
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
[2017-11-01] MEDS ORDERED: P-EPHED 60MG/TRIPROLIDI 2.5MG TABLET PO PRN (14:00)
[2017-11-01] MEDS ORDERED: MENTHOL/PHENOL 1 EACH UD MM PRN (14:00)
[2017-11-01] MEDS ORDERED: ACETAMINOPHEN 325 MG TABLET (FP) PO PRN (14:00)
[2017-11-01] MEDS ORDERED: NICOTINE POLACRILEX 4 MG GUM BUC PRN (14:00)
[2017-11-01] MEDS ORDERED: LOPERAMIDE HCL 2 MG CAPSULE PO PRN (14:00)
[2017-11-01] MEDS ORDERED: guaiFENesin/D-METHORPHAN HB 10 ML UNIT-DOSE CUPS PO PRN (14:00)
[2017-11-01] MEDS ORDERED: MAGNESIUM CITRATE 300 ML BOTTLE PO PRN (14:00)
[2017-11-01] MEDS ORDERED: MAG HYDROX/AL HYDROX/SIMETH 30 ML UNIT-DOSE CUP PO PRN (14:00)
[2017-11-01] MEDS ORDERED: IBUPROFEN 400 MG TABLET (FP) PO PRN (14:00)
[2017-11-01] MEDS ORDERED: hydrOXYzine PAMOATE 25 MG CAPSULE (FP) PO PRN (14:00)
[2017-11-01] MEDS ORDERED: diazePAM 5 MG TABLET PO ONE (15:35)
[2017-11-01] MEDS ORDERED: METHADONE HCL 10 MG TABLET (FOR DETOX USE ONLY) PO ONE ×2 (15:35→23:00)
[2017-11-01] MEDS ORDERED: MELATONIN 5 MG TABLETS PO PRN (22:00)
[2017-11-01] MEDS: diazePAM 5 MG TABLET PO SCH (22:31)
[2017-11-01] MEDS: BACITRACIN 0.9 GM PACKET TP SCH (22:31)
[2017-11-01] MEDS: THIAMINE HCL 100 MG TABLET (FP) PO SCH (22:31)
[2017-11-01 23:14] LABS: URINE APPEARANCE CLEAR; URINE BILIRUBIN NEGATIVE (<2.0 mg/dL); URINE BLOOD NEGATIVE (NEGATIVE); URINE COLOR YELLOW; URINE GLUCOSE (UA) NEGATIVE (NEGATIVE); URINE KETONE TRACE (NEGATIVE); URINE LEUK ESTERASE NEGATIVE (NEGATIVE); URINE NITRITE NEGATIVE (NEGATIVE); URINE PROTEIN NEGATIVE (NEGATIVE); URINE UROBILINOGEN NEGATIVE mg/dL (0.2-1.0)
[2017-11-02] MEDS: diazePAM 5 MG TABLET PO SCH ×3 (05:37→22:01)
[2017-11-02] MEDS: BACITRACIN 0.9 GM PACKET TP SCH ×2 (09:59→22:01)
[2017-11-02] MEDS ORDERED: METHADONE HCL 10 MG TABLET (FOR DETOX USE ONLY) PO SCH (10:00)
[2017-11-02] MEDS: PRENATAL VITAMINS W/ FOLIC ACID TABLET (FP) PO SCH (10:00)
[2017-11-02] MEDS: NICOTINE 21 MG/24 HOURS TOPICAL PATCH TD SCH (10:00)
[2017-11-02] MEDS: diazePAM 5 MG TABLET PO PRN ×2 (10:00→16:49)
[2017-11-02 11:26] LABS: HEMATOCRIT 40.1 % (35.4-49); HEMOGLOBIN 13.8 GM/dL (11.7-16.9); MCH 31.6 pg (25.7-33.7); MCHC 34.4 g/dl (32.0-35.9); MEAN PLT VOLUME 8.9 fl (7.5-11.1); PLATELET COUNT 228 K/MM3 (134-434); RBC 4.36 M/mm3 (4.00-5.60); RDW 12.9 % (11.9-15.9); WHITE BLOOD COUNT 3.6 K/mm3 (4.0-10.0)
[2017-11-02 11:34] LABS: CHLORIDE 114 mmol/L (98-107); POTASSIUM 3.9 mmol/L (3.5-5.1); SODIUM 141 mmol/L (136-145)
[2017-11-02 11:40] LABS: ALBUMIN 4.1 g/dl (3.4-5.0); ALK PHOS 66 U/L (45-117); ANION GAP 2 (8-16); BILIRUBIN,TOTAL 0.1 mg/dL (0.2-1.0); BLOOD UREA NITROGEN 11 mg/dL (7-18); CALCIUM 8.4 mg/dL (8.5-10.1); CO2 25 mmol/L (21-32); CREATININE 0.8 mg/dL (0.7-1.3); GLUCOSE,RANDOM 134 mg/dL (74-106); SGOT/AST 14 U/L (15-37); SGPT/ALT 27 U/L (12-78); TOT PROT 7.1 g/dl (6.4-8.2)
[2017-11-02] MEDS: LIDOCAINE 5% TOPICAL PATCH TP SCH (13:47)
--- NOTE | 2017-11-02 14:10 | CONSULT ---
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 Substance Abuse History: Confirmed by patient in this interview.Smoking history : Current every day smoker. Have you smoked in the past 12 months: Yes. Aproximately how many cigarettes per day: 19. Cigars Per Day: 0. Hx Chewing Tobacco Use: No. Initiated information on smoking cessation: Yes. 'Breaking Loose' booklet given: 11/01/17. - Substance & Tx. History. Hx Alcohol Use: Yes. Hx Substance Use: Yes. Substance Use Type: Alcohol, Heroin, Marijuana. Hx Substance Use Treatment: Yes. - Substances Abused. Alcohol. Route: Oral. Frequency: 3-6 times per week. Amount used: beer 100-120 oz. Age of first use: 13. Date of Last Use: 11/01/17. Alprazolam (Xanax). Route: Oral. Frequency: Daily. Amount used: 4-8mg. Age of first use: 17. Date of Last Use: 10/29/17. Heroin. Route: Injection. Frequency: Daily. Amount used: 1-2 bags. Age of first use: 27. Date of Last Use: 10/28/17. Marijuana/Hashish. Route: Smoking. Frequency: Daily. Amount used: 1 gram. Age of first use: 13. Date of Last Use: 11/01/17 Medical History: Bronchial asthma (childhood),antecedent of syncope,withdrawal- related seizures (2013) an a recent history of acidental overdose with heroin. Psychiatric History: Patient denies history of mental illness.No reported history of suicide attempts. Physical/Sexual Abuse/Trauma History: Patient denies. Additional Comment: Urine Drug Screen Results: THC-Marijuana, GAGE-Cocaine, OPI- Opiates, BZO-Benzodiazepines, OXY-Oxycodone.Noted. Mental Status Exam - Mental Status Exam Alert and Oriented to: Time, Place, Person Cognitive Function: Good Patient Appearance: Well Groomed (facial bruises from a fall prior to this [facility] visit) Mood: Nervous, Anxious Affect: Mood Congruent Patient Behavior: Fatigued, Cooperative Speech Pattern: Clear, Appropriate Voice Loudness: Normal Thought Process: Intact, Goal Oriented Thought Disorder: Not Present Hallucinations: Denies Suicidal Ideation: Denies Homicidal Ideation: Denies Insight/Judgement: Poor Sleep: Poorly, Difficulty falling asleep (wants seroquel ) Appetite: Good Muscle strength/Tone: Normal Gait/Station: Normal Psychiatric Findings - Problem List ([place] 1, 2,3) (1) Alcohol dependence with uncomplicated withdrawal Current Visit: Yes Status: Acute (2) Opioid dependence with withdrawal Current Visit: Yes Status: Acute (3) Sedative, hypnotic or anxiolytic dependence with withdrawal, uncomplicated Current Visit: Yes Status: Acute (4) Nicotine dependence Current Visit: Yes Status: Acute Qualifiers: Nicotine product type: cigarettes Substance use status: uncomplicated Qualified Code(s): F17.210 - Nicotine dependence, cigarettes, uncomplicated (5) Drug-induced mood disorder Current Visit: Yes Status: Acute (6) Insomnia Current Visit: Yes Status: Acute - Initial Treatment Plan Initial Treatment Plan: Psychoeducation.Sleep hygiene.Detoxification.Ambien 5 mg po hs prn.Side effects/benefits discussed with the patient.Mr Bell agrees with this careplan.Observation.
--- NOTE | 2017-11-02 16:56 | PN ---
[facility] CIWA - CIWA Score Nausea/Vomitin-No Nausea/No Vomiting Muscle Tremors: None Anxiety: 4-Mod. Anxious/Guarded Agitation: 4-Moderately Restless Paroxysmal Sweats: 3 Orientation: 0-Oriented Tacttile Disturbances: 3-Moderate Itch/Numb/Burn Auditory Disturbances: 0-None Visual Disturbances: 3-Moderate Sensitivity Headache: 0-None Present CIWA-Ar Total Score: 17 S COWS - Scale Resting Pulse: 0= [place] 80 or Below Sweatin= Chills/Flushing Restless Observation: 1= Difficult to Sit Still Pupil Size: 0= Normal to Room Light Bone or Joint Aches: 2= Severe Diffuse Aches Runny Nose/ Eye Tearin= None GI Upset > 30mins: 1= Stomach Cramp Tremor Observation of Outstretched Hands: 0= None Yawning Observation: 1= 1-2x During Session Anxiety or Irritability: 2=Irritable/Anxious Goose Flesh Skin: 3=Piloerection COWS Score: 11 S Progress Note (SOAP) Subjective: Constipation, Interrupted Sleep, Body Aches, Anxious. Objective: PATIENT A & O X 3, OBSERVED AMBULATING ON UNIT. NO ACUTE DISTRESS. 11/02/17 16:55 Vital Signs Temperature 96.6 F L 11/02/17 13:52 Pulse Rate 76 11/02/17 16:00 Respiratory Rate 18 11/02/17 16:00 Blood Pressure 115/86 11/02/17 13:52 O2 Sat by Pulse Oximetry (%) Laboratory Tests 11/01/17 11/02/17 11/02/17 18:48 06:20 06:20 WBC 3.6 L RBC 4.36 Hgb 13.8 Hct 40.1 MCV 92.0 MCH 31.6 MCHC 34.4 RDW 12.9 Plt Count 228 MPV 8.9 Sodium 141 Potassium 3.9 Chloride 114 H Carbon Dioxide 25 Anion Gap 2 L BUN 11 Creatinine 0.8 Creat Clearance w eGFR > 60 Random Glucose 134 H Calcium 8.4 L Total Bilirubin 0.1 L D AST 14 L ALT 27 D Alkaline Phosphatase 66 D Total Protein 7.1 D Albumin 4.1 Urine Color Yellow Urine Appearance Clear Urine pH 6.0 Ur Specific [place] 1.026 Urine Protein Negative Urine Glucose (UA) Negative Urine Ketones Trace H Urine Blood Negative Urine Nitrite Negative Urine Bilirubin Negative Urine Urobilinogen Negative Ur Leukocyte Esterase Negative RPR Titer HIV 1&2 Antibody Screen HIV P24 Antigen 11/02/17 11/02/17 06:20 08:40 WBC RBC Hgb Hct MCV MCH MCHC RDW Plt Count MPV Sodium Potassium Chloride Carbon Dioxide Anion Gap BUN Creatinine Creat Clearance w eGFR Random Glucose Calcium Total Bilirubin AST ALT Alkaline Phosphatase Total Protein Albumin Urine Color Urine Appearance Urine pH Ur Specific [place] Urine Protein Urine Glucose (UA) Urine Ketones Urine Blood Urine Nitrite Urine Bilirubin Urine Urobilinogen Ur Leukocyte Esterase RPR Titer Nonreactive HIV 1&2 Antibody Screen Negative HIV P24 Antigen Negative LABS NOTED. Assessment: 11/02/17 16:55 WITHDRAWAL SYMPTOMS. Plan: CONTINUE DETOX.
--- NOTE | 2017-11-02 18:29 | EKG ---
Test Reason : Blood Pressure : / mmHG Vent. Rate : 089 BPM Atrial Rate : 089 BPM P-R Int : 146 ms QRS Dur : 088 ms QT Int : 354 ms P-R-T Axes : 070 055 041 degrees QTc Int : 430 ms NORMAL SINUS RHYTHM NORMAL ECG WHEN COMPARED WITH ECG OF 20-FEB-2017 18:34, NO SIGNIFICANT CHANGE WAS FOUND Confirmed by MD GARCIA MOYSES ([id number]) on 11/02/2017 6:29:09 PM Referred By: Confirmed By:WILLIE GARCIA MD
[2017-11-02] MEDS: MAGNESIUM HYDROX 2400MG/30ML ORAL SUSPENSION 30 ML CUP PO PRN (21:42)
[2017-11-02] MEDS: THIAMINE HCL 100 MG TABLET (FP) PO SCH (22:01)
[2017-11-02] MEDS: ZOLPIDEM TARTRATE 5 MG TABLET PO PRN (22:01)
[2017-11-02] MEDS: LIDOCAINE PATCH REMOVAL MC SCH (22:02)
[2017-11-03] MEDS: diazePAM 5 MG TABLET PO PRN ×3 (05:27→17:03)
[2017-11-03] MEDS: LIDOCAINE 5% TOPICAL PATCH TP SCH (10:14)
[2017-11-03] MEDS: BACITRACIN 0.9 GM PACKET TP SCH ×2 (10:14→22:01)
[2017-11-03] MEDS: PRENATAL VITAMINS W/ FOLIC ACID TABLET (FP) PO SCH (10:14)
[2017-11-03] MEDS: METHADONE HCL 5 MG TABLET (FOR DETOX USE ONLY) PO SCH (10:14)
[2017-11-03] MEDS: diazePAM 5 MG TABLET PO SCH ×2 (10:14→21:19)
[2017-11-03] MEDS: NICOTINE 21 MG/24 HOURS TOPICAL PATCH TD SCH (10:15)
[2017-11-03] MEDS ORDERED: ALBUTEROL SO4 2.5/IPRATROPIUM 0.5 INH SOL 3 ML VIAL.NEB. NEB ONE (11:00)
[2017-11-03] MEDS ORDERED: AZITHROMYCIN 500 MG TABLET PO ONE (11:00)
[2017-11-03] MEDS ORDERED: ALBUTEROL SO4 2.5/IPRATROPIUM 0.5 INH SOL 3 ML VIAL.NEB. NEB PRN (11:00)
--- NOTE | 2017-11-03 11:05 | PN ---
[facility] CIWA - CIWA Score Nausea/Vomitin-No Nausea/No Vomiting Muscle Tremors: 4-Moderate,w/Arms Extend Anxiety: 3 Agitation: 3 Paroxysmal Sweats: 3 Orientation: 0-Oriented Tacttile Disturbances: 0-None Auditory Disturbances: 0-None Visual Disturbances: 0-None Headache: 0-None Present CIWA-Ar Total Score: 13 BHS COWS - Scale Resting Pulse: 0= [place] 80 or Below Sweatin=Flushed/Facial Moisture Restless Observation: 1= Difficult to Sit Still Pupil Size: 0= Normal to Room Light Bone or Joint Aches: 2= Severe Diffuse Aches Runny Nose/ Eye Tearin= Runny Nose/Eyes GI Upset > 30mins: 0= None Tremor Observation of Outstretched Hands: 2= Slight Tremor Visible Yawning Observation: 2= >3x During Session Anxiety or Irritability: 2=Irritable/Anxious Goose Flesh Skin: 3=Piloerection COWS Score: 16 [facility] Progress Note (SOAP) Subjective: agitation sweats chills body aches I am coughing lots of yellowish/greenish phlegm Objective: 11/03/17 11:03 Vital Signs Temperature 97.6 F 11/03/17 10:58 Pulse Rate 78 11/03/17 10:58 Respiratory Rate 18 11/03/17 10:58 Blood Pressure 112/61 11/03/17 10:58 O2 Sat by Pulse Oximetry (%) Laboratory Tests 11/01/17 11/02/17 11/02/17 18:48 06:20 06:20 WBC 3.6 L RBC 4.36 Hgb 13.8 Hct 40.1 MCV 92.0 MCH 31.6 MCHC 34.4 RDW 12.9 Plt Count 228 MPV 8.9 Sodium 141 Potassium 3.9 Chloride 114 H Carbon Dioxide 25 Anion Gap 2 L BUN 11 Creatinine 0.8 Creat Clearance w eGFR > 60 Random Glucose 134 H Calcium 8.4 L Total Bilirubin 0.1 L D AST 14 L ALT 27 D Alkaline Phosphatase 66 D Total Protein 7.1 D Albumin 4.1 Urine Color Yellow Urine Appearance Clear Urine pH 6.0 Ur Specific [place] 1.026 Urine Protein Negative Urine Glucose (UA) Negative Urine Ketones Trace H Urine Blood Negative Urine Nitrite Negative Urine Bilirubin Negative Urine Urobilinogen Negative Ur Leukocyte Esterase Negative RPR Titer HIV 1&2 Antibody Screen HIV P24 Antigen 11/02/17 11/02/17 06:20 08:40 WBC RBC Hgb Hct MCV MCH MCHC RDW Plt Count MPV Sodium Potassium Chloride Carbon Dioxide Anion Gap BUN Creatinine Creat Clearance w eGFR Random Glucose Calcium Total Bilirubin AST ALT Alkaline Phosphatase Total Protein Albumin Urine Color Urine Appearance Urine pH Ur Specific [place] Urine Protein Urine Glucose (UA) Urine Ketones Urine Blood Urine Nitrite Urine Bilirubin Urine Urobilinogen Ur Leukocyte Esterase RPR Titer Nonreactive HIV 1&2 Antibody Screen Negative HIV P24 Antigen Negative aaox3 ambulating lungs assessed; rhonchi/wheezing noted Assessment: 11/03/17 11:03 withdrawal sx Plan: continue detox body aches duoneb tx prn z-tonio ordered encouraged increased fluids
[2017-11-03] MEDS ORDERED: AZITHROMYCIN 250 MG TABLET PO ONE ×2 (12:45→15:15)
[2017-11-03] MEDS: MAGNESIUM HYDROX 2400MG/30ML ORAL SUSPENSION 30 ML CUP PO PRN (16:27)
[2017-11-03] MEDS: THIAMINE HCL 100 MG TABLET (FP) PO SCH (22:01)
[2017-11-03] MEDS: LIDOCAINE PATCH REMOVAL MC SCH (22:02)
[2017-11-03] MEDS: ZOLPIDEM TARTRATE 5 MG TABLET PO PRN (22:02)
[2017-11-04] MEDS: diazePAM 5 MG TABLET PO PRN ×3 (00:21→12:17)
[2017-11-04] MEDS: diazePAM 5 MG TABLET PO SCH ×2 (10:01→22:10)
[2017-11-04] MEDS: PRENATAL VITAMINS W/ FOLIC ACID TABLET (FP) PO SCH (10:01)
[2017-11-04] MEDS: METHADONE HCL 5 MG TABLET (FOR DETOX USE ONLY) PO SCH (10:01)
[2017-11-04] MEDS: BACITRACIN 0.9 GM PACKET TP SCH ×2 (10:01→22:09)
[2017-11-04] MEDS: NICOTINE 21 MG/24 HOURS TOPICAL PATCH TD SCH (10:01)
[2017-11-04] MEDS: LIDOCAINE 5% TOPICAL PATCH TP SCH (10:02)
[2017-11-04] MEDS: MAGNESIUM HYDROX 2400MG/30ML ORAL SUSPENSION 30 ML CUP PO PRN (10:03)
[2017-11-04] MEDS: AZITHROMYCIN 250 MG TABLET PO SCH (10:45)
--- NOTE | 2017-11-04 15:53 | PN ---
BHS Progress Note (SOAP) Subjective: Sweating, Anxious. Objective: PATIENT A & O X 3., OBSERVED AMBULATING ON UNIT. NO ACUTE DISTRESS. 11/04/17 15:52 Vital Signs Temperature 97.7 F 11/04/17 13:14 Pulse Rate 97 H 11/04/17 13:14 Respiratory Rate 20 11/04/17 13:14 Blood Pressure 109/69 11/04/17 13:14 O2 Sat by Pulse Oximetry (%) Laboratory Tests 11/01/17 11/02/17 11/02/17 18:48 06:20 06:20 WBC 3.6 L RBC 4.36 Hgb 13.8 Hct 40.1 MCV 92.0 MCH 31.6 MCHC 34.4 RDW 12.9 Plt Count 228 MPV 8.9 Sodium 141 Potassium 3.9 Chloride 114 H Carbon Dioxide 25 Anion Gap 2 L BUN 11 Creatinine 0.8 Creat Clearance w eGFR > 60 Random Glucose 134 H Calcium 8.4 L Total Bilirubin 0.1 L D AST 14 L ALT 27 D Alkaline Phosphatase 66 D Total Protein 7.1 D Albumin 4.1 Urine Color Yellow Urine Appearance Clear Urine pH 6.0 Ur Specific [place] 1.026 Urine Protein Negative Urine Glucose (UA) Negative Urine Ketones Trace H Urine Blood Negative Urine Nitrite Negative Urine Bilirubin Negative Urine Urobilinogen Negative Ur Leukocyte Esterase Negative RPR Titer HIV 1&2 Antibody Screen HIV P24 Antigen 11/02/17 11/02/17 06:20 08:40 WBC RBC Hgb Hct MCV MCH MCHC RDW Plt Count MPV Sodium Potassium Chloride Carbon Dioxide Anion Gap BUN Creatinine Creat Clearance w eGFR Random Glucose Calcium Total Bilirubin AST ALT Alkaline Phosphatase Total Protein Albumin Urine Color Urine Appearance Urine pH Ur Specific [place] Urine Protein Urine Glucose (UA) Urine Ketones Urine Blood Urine Nitrite Urine Bilirubin Urine Urobilinogen Ur Leukocyte Esterase RPR Titer Nonreactive HIV 1&2 Antibody Screen Negative HIV P24 Antigen Negative labs noted. Assessment: 11/04/17 15:52 WITHDRAWAL SYMPTOMS. Plan: CONTINUE DETOX. INCREASE DAILY PO FLUID INTAKE.
[2017-11-04] MEDS: LIDOCAINE PATCH REMOVAL MC SCH (22:10)
[2017-11-04] MEDS: THIAMINE HCL 100 MG TABLET (FP) PO SCH (22:10)
[2017-11-04] MEDS: ZOLPIDEM TARTRATE 5 MG TABLET PO PRN (22:10)
[2017-11-05] MEDS ORDERED: diazePAM 5 MG TABLET PO SCH (10:00)
[2017-11-05] MEDS ORDERED: METHADONE HCL 10 MG TABLET (FOR DETOX USE ONLY) PO SCH (10:00)
[2017-11-05] MEDS: NICOTINE 21 MG/24 HOURS TOPICAL PATCH TD SCH (10:03)
[2017-11-05] MEDS: PRENATAL VITAMINS W/ FOLIC ACID TABLET (FP) PO SCH (10:03)
[2017-11-05] MEDS: BACITRACIN 0.9 GM PACKET TP SCH (10:03)
[2017-11-05] MEDS: LIDOCAINE 5% TOPICAL PATCH TP SCH (10:04)
[2017-11-05] MEDS: AZITHROMYCIN 250 MG TABLET PO SCH (10:04)
--- NOTE | 2017-11-05 12:03 | DS ---
[facility] Detox Discharge Summary Admission Date: 11/01/17 Discharge Date: 11/05/17 - History Present History: Opioid Dependence Additional Comments: ALERT O X 3. NAD. PT MAY GO TO REHAB TODAY IF BED IS AVAILABLE Pertinent Past History: PLEASE SEE DX BELOW - Physical Exam Results Vital Signs: Vital Signs Temperature 98.1 F 11/05/17 09:07 Pulse Rate 97 H 11/05/17 09:07 Respiratory Rate 20 11/05/17 09:07 Blood Pressure 104/60 11/05/17 09:07 O2 Sat by Pulse Oximetry (%) Pertinent Admission Physical Exam Findings: WITHDRAWAL SX Laboratory Last Values WBC 3.6 K/mm3 (4.0-10.0) L 11/02/17 06:20 RBC 4.36 M/mm3 (4.00-5.60) 11/02/17 06:20 Hgb 13.8 GM/dL (11.7-16.9) 11/02/17 06:20 Hct 40.1 % (35.4-49) 11/02/17 06:20 MCV 92.0 fl (80-96) 11/02/17 06:20 MCH 31.6 pg (25.7-33.7) 11/02/17 06:20 MCHC 34.4 g/dl (32.0-35.9) 11/02/17 06:20 RDW 12.9 % (11.9-15.9) 11/02/17 06:20 Plt Count 228 K/MM3 (134-434) 11/02/17 06:20 MPV 8.9 fl (7.5-11.1) 11/02/17 06:20 Sodium 141 mmol/L (136-145) 11/02/17 06:20 Potassium 3.9 mmol/L (3.5-5.1) 11/02/17 06:20 Chloride 114 mmol/L (98-107) H 11/02/17 06:20 Carbon Dioxide 25 mmol/L (21-32) 11/02/17 06:20 Anion Gap 2 (8-16) L 11/02/17 06:20 BUN 11 mg/dL (7-18) 11/02/17 06:20 Creatinine 0.8 mg/dL (0.7-1.3) 11/02/17 06:20 Creat Clearance w eGFR > 60 (>60) 11/02/17 06:20 Random Glucose 134 mg/dL (74-106) H 11/02/17 06:20 Calcium 8.4 mg/dL (8.5-10.1) L 11/02/17 06:20 Total Bilirubin 0.1 mg/dL (0.2-1.0) L D 11/02/17 06:20 AST 14 U/L (15-37) L 11/02/17 06:20 ALT 27 U/L (12-78) D 11/02/17 06:20 Alkaline Phosphatase 66 U/L (45-117) D 11/02/17 06:20 Total Protein 7.1 g/dl (6.4-8.2) D 11/02/17 06:20 Albumin 4.1 g/dl (3.4-5.0) 11/02/17 06:20 Urine Color Yellow 11/01/17 18:48 Urine Appearance Clear 11/01/17 18:48 Urine pH 6.0 (5.0-8.0) 11/01/17 18:48 Ur Specific [place] 1.026 (1.001-1.035) 11/01/17 18:48 Urine Protein Negative (NEGATIVE) 11/01/17 18:48 Urine Glucose (UA) Negative (NEGATIVE) 11/01/17 18:48 Urine Ketones Trace (NEGATIVE) H 11/01/17 18:48 Urine Blood Negative (NEGATIVE) 11/01/17 18:48 Urine Nitrite Negative (NEGATIVE) 11/01/17 18:48 Urine Bilirubin Negative (<2.0 mg/dL) 11/01/17 18:48 Urine Urobilinogen Negative mg/dL (0.2-1.0) 11/01/17 18:48 Ur Leukocyte Esterase Negative (NEGATIVE) 11/01/17 18:48 RPR Titer Nonreactive (NONREACTIVE) 11/02/17 06:20 HIV 1&2 Antibody Screen Negative 11/02/17 08:40 HIV P24 Antigen Negative 11/02/17 08:40 - Treatment Hospital Course: Detox Protocol Followed, Detoxed Safely, Responded well, Discharged Condition Good, Rehab Referral Accepted Patient has Accepted a Rehab Referral to: [facility] - Medication Discharge Medications: Ambulatory Orders NK [No Known Home Medication] 03/30/18 - Diagnosis (1) Alcohol dependence with uncomplicated withdrawal Current Visit: Yes Status: Acute (2) Facial abrasion Current Visit: Yes Status: Acute Qualifiers: Encounter type: sequela Qualified Code(s): S00.81XS - Abrasion of other part of head, sequela (3) Nicotine dependence Current Visit: Yes Status: Acute Qualifiers: Nicotine product type: cigarettes Substance use status: in withdrawal Qualified Code(s): F17.213 - Nicotine dependence, cigarettes, with withdrawal (4) Opioid dependence with withdrawal Current Visit: Yes Status: Acute (5) Sedative, hypnotic or anxiolytic dependence with withdrawal, uncomplicated Current Visit: Yes Status: Acute (6) Withdrawal seizures Current Visit: Yes Status: Suspected Qualifiers: Complication of substance-induced condition: uncomplicated Qualified Code(s ): F19.230 - Other psychoactive substance dependence with withdrawal, uncomplicated (7) Drug-induced mood disorder Current Visit: Yes Status: Acute (8) Insomnia Current Visit: Yes Status: Acute - AMA Did Patient Leave Against Medical Advice: No
[2017-11-05 13:20] VITALS: BP 123/73; PULSE 87; TEMP 97.7
[2017-11-06] MEDS ORDERED: METHADONE HCL 5 MG TABLET (FOR DETOX USE ONLY) PO SCH (06:00)
== END 2017-11-05 12:46 | disposition other institution (70) | DRG 773 ==
LOC: YASAS 10:42 → Y3N 15:27
PROVIDERS: ADMIT Internal Medicine; ATTEND Internal Medicine
PROC: HZ2ZZZZ Detoxification Services for Substance Abuse Treatment (ICD-10-PCS; principal; 2017-11-01)
DX: F11.23 Opioid dependence with withdrawal (principal); F13.230 Sedative, hypnotic or anxiolytic dependence with withdrawal, uncomplicated; F10.230 Alcohol dependence with withdrawal, uncomplicated; F17.213 Nicotine dependence, cigarettes, with withdrawal; F19.24 Other psychoactive substance dependence with psychoactive substance-induced mood disorder; G47.00 Insomnia, unspecified; G40.509 Epileptic seizures related to external causes, not intractable, without status epilepticus; Z87.828 Personal history of other (healed) physical injury and trauma
CPT/HCPCS: 36415; 80053; 81003; 85027; 86593; 87389; 93005; 93010; 94640

== ENCOUNTER 2017-11-05 13:01 | Inpatient (IN) | payer OTHER ==
[2017-11-05] MEDS ORDERED: ACETAMINOPHEN 325 MG TABLET (FP) PO PRN (16:36)
[2017-11-05] MEDS ORDERED: MAGNESIUM HYDROX 2400MG/30ML ORAL SUSPENSION 30 ML CUP PO PRN (16:36)
[2017-11-05] MEDS ORDERED: LOPERAMIDE HCL 2 MG CAPSULE PO PRN (16:36)
[2017-11-05] MEDS ORDERED: P-EPHED 60MG/TRIPROLIDI 2.5MG TABLET PO PRN (16:36)
[2017-11-05] MEDS ORDERED: MENTHOL/PHENOL 1 EACH UD MM PRN (16:36)
[2017-11-05] MEDS ORDERED: guaiFENesin/D-METHORPHAN HB 10 ML UNIT-DOSE CUPS PO PRN (16:36)
[2017-11-05] MEDS ORDERED: MAG HYDROX/AL HYDROX/SIMETH 30 ML UNIT-DOSE CUP PO PRN (16:36)
[2017-11-05] MEDS ORDERED: hydrOXYzine PAMOATE 50 MG CAPSULE (FP) PO PRN (16:36)
[2017-11-05] MEDS ORDERED: IBUPROFEN 400 MG TABLET (FP) PO PRN (16:36)
[2017-11-05] MEDS ORDERED: MAGNESIUM CITRATE 300 ML BOTTLE PO PRN (16:36)
[2017-11-05] MEDS ORDERED: NICOTINE POLACRILEX 4 MG GUM BUC PRN (16:41)
--- NOTE | 2017-11-05 16:46 | HP ---
[facility] Rehab Assess/Revision - Admission History Admitted to Rehab from: [address] Date of Admission to Rehab: 11/04/17 - Vital signs Vital Signs: Vital Signs Period Temp Pulse Resp BP Sys/Vicente Pulse Ox Last 24 Hr 97.6 F-97.6 F 90-90 18-18 133-133/67-67 - Findings Detox History & Physical reviewed: Yes Concur with findings: Yes Comments/Additional Findings: PT WAS REFERRED TO REHAB TODAY FROM [address] [place] [address]. ALERT O X 3. NAD. Inpatient Rehab Admission - Initial Determination Are CD services needed?: Yes Free of communicable disease: Yes Not in need of hospitalization: Yes - Rehab Admission Criteria Patient is meeting Inpatient Rehab admission criteria:: Yes
[2017-11-05] MEDS: NICOTINE 21 MG/24 HOURS TOPICAL PATCH TD SCH (17:29)
[2017-11-05] MEDS: THIAMINE HCL 100 MG TABLET (FP) PO SCH (21:10)
[2017-11-06] MEDS: PRENATAL VITAMINS W/ FOLIC ACID TABLET (FP) PO SCH (09:59)
[2017-11-06] MEDS: NICOTINE 21 MG/24 HOURS TOPICAL PATCH TD SCH (09:59)
[2017-11-06] MEDS: AZITHROMYCIN 250 MG TABLET PO SCH (09:59)
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
[2017-11-06] MEDS: busPIRone HCL 5 MG TABLET PO SCH ×2 (14:21→21:17)
[2017-11-06] MEDS: THIAMINE HCL 100 MG TABLET (FP) PO SCH (21:17)
[2017-11-06] MEDS: MELATONIN 5 MG TABLETS PO PRN (21:17)
[2017-11-06] MEDS: MIRTAZAPINE 15 MG TABLET (FP) PO SCH (21:18)
[2017-11-07] MEDS: busPIRone HCL 5 MG TABLET PO SCH ×2 (06:40→14:06)
[2017-11-07] MEDS: PRENATAL VITAMINS W/ FOLIC ACID TABLET (FP) PO SCH (09:53)
[2017-11-07] MEDS: NICOTINE 21 MG/24 HOURS TOPICAL PATCH TD SCH (09:53)
[2017-11-07] MEDS: AZITHROMYCIN 250 MG TABLET PO SCH (09:53)
--- NOTE | 2017-11-07 14:31 | PN ---
[facility] Progress Note Note: Patient reports feels slow, sedated and wants to sleep during day time, recommended to d/c Colin.
[2017-11-07] MEDS: MIRTAZAPINE 15 MG TABLET (FP) PO SCH (21:16)
[2017-11-07] MEDS: THIAMINE HCL 100 MG TABLET (FP) PO SCH (21:16)
[2017-11-08] MEDS: MELATONIN 5 MG TABLETS PO PRN ×2 (00:16→22:36)
[2017-11-08] MEDS: NICOTINE 21 MG/24 HOURS TOPICAL PATCH TD SCH (10:09)
[2017-11-08] MEDS: AZITHROMYCIN 250 MG TABLET PO SCH (10:09)
[2017-11-08] MEDS: PRENATAL VITAMINS W/ FOLIC ACID TABLET (FP) PO SCH (10:09)
[2017-11-08] MEDS: THIAMINE HCL 100 MG TABLET (FP) PO SCH (21:10)
[2017-11-08] MEDS: MIRTAZAPINE 15 MG TABLET (FP) PO SCH (21:10)
[2017-11-09] MEDS: NICOTINE 21 MG/24 HOURS TOPICAL PATCH TD SCH (09:40)
[2017-11-09] MEDS: PRENATAL VITAMINS W/ FOLIC ACID TABLET (FP) PO SCH (09:40)
[2017-11-09] MEDS: MIRTAZAPINE 15 MG TABLET (FP) PO SCH (21:11)
[2017-11-09] MEDS: THIAMINE HCL 100 MG TABLET (FP) PO SCH (21:11)
[2017-11-09] MEDS: MELATONIN 5 MG TABLETS PO PRN (21:12)
[2017-11-10 07:01] VITALS: BP 124/74; PULSE 72; TEMP 97.5
--- NOTE | 2017-11-11 08:35 | PN ---
S Progress Note Note: was informed by the staff that patient left AMA on 11/10/17, please see medical staff notes.
== END 2017-11-10 07:30 | disposition left against medical advice (07) | DRG 770 ==
LOC: YASAS 13:01 → Y5N 13:02
PROVIDERS: ADMIT Psychiatry & Neurology Psychiatry; ATTEND Psychiatry & Neurology Psychiatry
PROC: HZ42ZZZ Group Counseling for Substance Abuse Treatment, Cognitive-Behavioral (ICD-10-PCS; principal; 2017-11-05)
DX: F11.23 Opioid dependence with withdrawal (principal); F13.230 Sedative, hypnotic or anxiolytic dependence with withdrawal, uncomplicated; F10.230 Alcohol dependence with withdrawal, uncomplicated; F17.213 Nicotine dependence, cigarettes, with withdrawal; F43.10 Post-traumatic stress disorder, unspecified; F41.9 Anxiety disorder, unspecified; G47.00 Insomnia, unspecified; Z86.69 Personal history of other diseases of the nervous system and sense organs